=== PATIENT | female | born 1970 | race Caucasian/White ===

== ENCOUNTER 2016-06-18 11:30 | Emergency (ER) | payer MEDICARE, MEDICAID ==
[~2016-06-18] VITALS: Ht 157.5 cm; Wt 63.0 kg
[~2016-06-18 11:30] MED LIST: AMOX/K CLAV500 MG OR; ASPIRIN81 MG PO; ATENOLOL25 MG PO; BAYER ASPIRIN325 MG PO; BETA BLOCKER PO; BUTALBITAL/ACET1 CAP PO; DIVALPROEX PO; FIORICET PO; FLAGYL500 MG OR; FLUARIX QUADRIV1 INJ IM; LEVAQUIN500 MG OR; LEVAQUIN750 MG PO; PRAVASTATIN20 MG PO; PRILOSEC20 MG/CAP PO; PYRIDIUM200 MG PO; SIMVASTATIN10 MG PO; SIMVASTATIN40 MG PO; TAM75CAP PO; VALPROIC ACD250 M3 PO; VISCOUS LIDOCAINE PO; ZOFRAN4 MG OR; ZOFRAN4 MG/TAB PO; [UNRECOGNIZED DRUG - CODE] OR
[2016-06-18 12:32] LABS: HEMATOCRIT 38.9 % (37.0-47.0); IMMATURE GRANULOCYTES 0.1 % (0.0-1.0); MEAN CELL VOLUME 87.8 fL CALC (80.0-100.0); MEAN CORPUSCULAR HGB 29.3 pG CALC (26.0-32.0); MEAN CORPUSCULAR HGB CONC 33.4 g/L CALC (32.0-36.0); NEUT# 3.85 thou/uL (2.00-7.15); RED BLOOD COUNT 4.43 mill/uL (4.20-5.60); RED CELL DISTRI WIDTH 12.8 % (11.5-15.5); URINE BILIRUBIN - DIPSTICK NEGATIVE (NEGATIVE); URINE BLOOD DIPSTICK MODERATE (NEGATIVE); URINE COLOR YELLOW; URINE GLUCOSE - DIPSTICK NEGATIVE (NEGATIVE); URINE KETONE NEGATIVE (NEGATIVE); URINE LEUK ESTERASE NEGATIVE (NEGATIVE); URINE NITRITE - DIPSTICK NEGATIVE (Negative); URINE PH 5.5 (4.5-8.0); URINE PROTEIN - DIPSTICK NEGATIVE (NEG-TRACE); URINE UROBILINOGEN - DIPSTICK 0.2 E.U./dL (0.2)
[2016-06-18 12:33] LABS: URINE CLARITY SLIGHT CLOUDY; URINE EPITHELIAL CELLS FEW EPI/hpf (0-FEW)
[2016-06-18 12:45] LABS: ALKALINE PHOSPHATASE 60 u/l (38-126); AMYLASE 68 u/l (30-110); ANION GAP 16 (6-22 (CALC)); BILIRUBIN, TOTAL 0.3 mg/dL (0.0-1.4); BUN 8 mg/dL (7-17); BUN/CREATININE RATIO 11 (12-20 (CALC)); CALCIUM 10.1 mg/dL (8.4-10.2); CARBON DIOXIDE 25 mmol/l (22-30); CHLORIDE 102 mmol/l (95-108); CREATININE 0.7 mg/dL (0.5-1.0); GFR > 60 ML/MIN (>=60 (CALC)); GFR FOR AFR.AMER. > 60 ML/MIN (>=60 (CALC)); GLUCOSE 86 mg/dL (65-105); LIPASE 160 u/l (23-300); POTASSIUM 4.2 mmol/l (3.5-5.1); SGOT/AST 21 u/l (14-36); SGPT/ALT 26 u/l (9-52); SODIUM 139 mmol/l (137-146); TOTAL PROTEIN 7.8 g/dL (6.3-8.2)
[2016-06-18 12:57] LABS: MYOGLOBIN 53 ng/mL (0 - 62)
[2016-06-18] MEDS ORDERED: PERCOCET 5/325M1 TAB PO (15:49)
[2016-06-18] MEDS ORDERED: ZOFRAN ODT4 MG PO (15:49)
[2016-06-18] MEDS ORDERED: NEXIUM40 M1 PO (15:49)
[2016-06-18 16:01] VITALS: BP 128/61
== END 2016-06-18 16:17 | disposition home or self-care (01) ==
LOC: ED 11:30
PROVIDERS: Emergency Medicine
DX: R10.11 Right upper quadrant pain (principal); R11.0 Nausea; F17.210 Nicotine dependence, cigarettes, uncomplicated

== ENCOUNTER 2018-02-20 21:15 | Emergency (ER) | payer MEDICARE ==
[~2018-02-20] VITALS: Ht 157.5 cm; Wt 72.7 kg
[~2018-02-20 21:15] MED LIST changes: +NEXIUM40 M1 PO; +PERCOCET 5/325M1 TAB PO; +ZOFRAN ODT4 MG PO
[2018-02-20] MEDS ORDERED: INDERAL 40MG TA40 MG PO (21:31)
[2018-02-20 22:14] LABS: HEMATOCRIT 33.7 % (37.0-47.0); HEMOGLOBIN 11.1 g/dl (12.0-16.0); IMMATURE GRANULOCYTES 0.2 % (0.0-5.0); MEAN CELL VOLUME 88.9 fL CALC (80.0-100.0); MEAN CORPUSCULAR HGB 29.3 pG CALC (26.0-32.0); MEAN CORPUSCULAR HGB CONC 32.9 g/L CALC (32.0-36.0); NEUT# 4.68 thou/uL (2.00-7.15); RED BLOOD COUNT 3.79 mill/uL (4.20-5.60)
[2018-02-20 22:31] LABS: ALBUMIN 4.2 g/dL (3.2-5.0); ANION GAP 15 (6-22 (CALC)); BILIRUBIN, TOTAL 0.2 mg/dL (0.0-1.4); BUN 10 mg/dL (7-17); BUN/CREATININE RATIO 15 (12-20 (CALC)); CARBON DIOXIDE 27 mmol/l (22-30); CHLORIDE 102 mmol/l (95-108); CREATININE 0.7 mg/dL (0.5-1.0); GFR > 60 ML/MIN (>=60 (CALC)); GFR FOR AFR.AMER. > 60 ML/MIN (>=60 (CALC)); SGOT/AST 18 u/l (14-36); SODIUM 140 mmol/l (137-146); TOTAL PROTEIN 6.9 g/dL (6.3-8.2)
[2018-02-20 22:39] LABS: ALKALINE PHOSPHATASE 76 u/l (38-126)
[2018-02-21] MEDS ORDERED: MOTRIN800 MG PO (00:28)
[2018-02-21] MEDS ORDERED: DOXYCYCL HYC100 MG PO (00:28)
[2018-02-21 00:36] VITALS: BP 142/79
== END 2018-02-21 00:40 | disposition home or self-care (01) ==
LOC: ED 21:15
PROVIDERS: Family Medicine
DX: J18.9 Pneumonia, unspecified organism (principal); R05 Cough; R50.9 Fever, unspecified; F17.210 Nicotine dependence, cigarettes, uncomplicated; R51 Headache

== ENCOUNTER 2018-05-03 11:59 | Emergency (ER) | payer MEDICARE, MEDICAID ==
[~2018-05-03] VITALS: Ht 157.5 cm; Wt 72.7 kg
[~2018-05-03 11:59] MED LIST changes: +DOXYCYCL HYC100 MG PO; +INDERAL 40MG TA40 MG PO; +MOTRIN800 MG PO
[2018-05-03 14:15] VITALS: BP 129/84
== END 2018-05-03 14:15 | disposition home or self-care (01) ==
LOC: ED 11:59
DX: S93.601A Unspecified sprain of right foot, initial encounter (principal); I10 Essential (primary) hypertension; F17.210 Nicotine dependence, cigarettes, uncomplicated; X50.0XXA Overexertion from strenuous movement or load, initial encounter; Y92.009 Unspecified place in unspecified non-institutional (private) residence as the place of occurrence of the external cause

== ENCOUNTER 2019-03-02 19:16 | Emergency (ER) | payer MEDICARE, MEDICAID ==
[~2019-03-02] VITALS: Ht 157.5 cm; Wt 74.1 kg
[2019-03-02 21:50] VITALS: BP 145/82
== END 2019-03-02 21:55 | disposition home or self-care (01) ==
LOC: ED 19:16
DX: B34.9 Viral infection, unspecified (principal); I10 Essential (primary) hypertension; F17.200 Nicotine dependence, unspecified, uncomplicated

== ENCOUNTER 2019-08-21 15:51 | Emergency (ER) | payer MEDICARE, MEDICAID ==
[2019-08-21 16:13] LABS: HEMATOCRIT 36.4 % (37.0-47.0); IMMATURE GRANULOCYTES 0.3 % (0.0-5.0); MEAN CELL VOLUME 86.7 fL CALC (80.0-100.0); MEAN CORPUSCULAR HGB 28.6 pG CALC (26.0-32.0); NEUT# 4.4 thou/uL (2.00-7.15); RED BLOOD COUNT 4.2 mill/uL (4.20-5.60); RED CELL DISTRI WIDTH 13.4 % (11.5-15.5)
[2019-08-21 16:30] LABS: ALBUMIN 4.4 g/dL (3.2-5.0); ALKALINE PHOSPHATASE 76 u/l (38-126); AMYLASE 103 u/l (30-110); ANION GAP 14 (6-22 (CALC)); BUN 10 mg/dL (7-17); BUN/CREATININE RATIO 13 (12-20 (CALC)); CARBON DIOXIDE 23 mmol/l (22-30); CHLORIDE 105 mmol/l (95-108); CREATININE 0.7 mg/dL (0.5-1.0); GFR > 60 ML/MIN (>=60 (CALC)); GFR FOR AFR.AMER. > 60 ML/MIN (>=60 (CALC)); LIPASE 199 u/l (23-300); POTASSIUM 3.7 mmol/l (3.5-5.1); SODIUM 138 mmol/l (137-146); TOTAL PROTEIN 7.5 g/dL (6.3-8.2)
[2019-08-21 16:32] LABS: ACT PARTIAL THROMBO TIME 27.1 SECONDS (20.0-32.5); D-DIMER 0.21 mg/L (0.19-0.60); PROTHROMBIN TIME 10.1 SECONDS (9.0-12.5)
[2019-08-21 16:42] LABS: MYOGLOBIN 64 ng/mL (0 - 62)
[2019-08-21 16:44] LABS: BILIRUBIN, TOTAL 0.3 mg/dL (0.0-1.4); SGOT/AST 32 u/l (14-36)
[2019-08-21] MEDS ORDERED: TORADOL PO (17:46)
[2019-08-21] MEDS ORDERED: PEPCID40 MG PO (17:46)
[2019-08-21 18:16] VITALS: BP 118/69
== END 2019-08-21 18:13 | disposition home or self-care (01) ==
LOC: ED 15:51
PROVIDERS: Family Medicine
DX: M94.0 Chondrocostal junction syndrome [Tietze] (principal); K20.9 Esophagitis, unspecified; I10 Essential (primary) hypertension; F17.200 Nicotine dependence, unspecified, uncomplicated

== ENCOUNTER 2023-03-17 12:38 | Emergency (ER) | payer MEDICARE, MEDICAID ==
[~2023-03-17] VITALS: Ht 157.5 cm; Wt 78.0 kg
[~2023-03-17 12:38] MED LIST changes: +AMOX/K CLAV875 M1 PO; +LORTAB 5/3255 MG PO; +ONDANSETRON4 MG PO; +PEPCID40 MG PO; +TORADOL PO
[2023-03-17 14:14] LABS: BASO% 0.3 % (0-3); EOS% 0.6 % (0-8); HEMATOCRIT 36.2 % (37.0-47.0); HEMOGLOBIN 11.9 g/dl (12.0-16.0); IMMATURE GRANULOCYTES 0.1 % (0.0-5.0); LYMPH% 27.7 % (15-41); MEAN CELL VOLUME 86.4 fL CALC (80.0-100.0); MEAN CORPUSCULAR HGB 28.4 pG CALC (26.0-32.0); MEAN CORPUSCULAR HGB CONC 32.9 g/dL CAL (32.0-36.0); MONO% 7.1 % (2-13); NEUT# 6.66 thou/uL (2.00-7.15); NEUT% 64.2 % (42-76); RED BLOOD COUNT 4.19 mill/uL (4.20-5.60); RED CELL DISTRI WIDTH 12.8 % (11.5-15.5)
[2023-03-17 14:27] LABS: ALBUMIN 4.6 g/dL (3.2-5.0); ALKALINE PHOSPHATASE 80 u/l (38-126); ANION GAP 15 (6-22 (CALC)); BUN 13 mg/dL (7-17); BUN/CREATININE RATIO 16 (12-20 (CALC)); CARBON DIOXIDE 26 mmol/l (22-30); CHLORIDE 103 mmol/l (95-108); CREATININE 0.8 mg/dL (0.5-1.0); GFR FOR AFR.AMER. > 60 ML/MIN (>=60 (CALC)); GFR OTHER RACES > 60 ML/MIN (>=60 (CALC)); POTASSIUM 3.6 mmol/l (3.5-5.1); SGOT/AST 25 u/l (14-36); SODIUM 139 mmol/l (137-146)
[2023-03-17 14:29] LABS: BILIRUBIN, TOTAL 0.5 mg/dL (0.02-1.3)
[2023-03-17 15:56] LABS: URINE BILIRUBIN - DIPSTICK Negative (NEGATIVE); URINE BLOOD DIPSTICK Moderate (NEGATIVE); URINE GLUCOSE - DIPSTICK Negative (NEGATIVE); URINE KETONE Negative (NEGATIVE); URINE LEUK ESTERASE Negative (NEGATIVE); URINE NITRITE - DIPSTICK Negative (Negative); URINE PROTEIN - DIPSTICK Negative (NEG-TRACE)
[2023-03-17] MEDS ORDERED: CIPROFLOXACN500 MG PO (15:56)
[2023-03-17] MEDS ORDERED: METRONIDAZOLE500 MG PO (15:56)
[2023-03-17 15:57] LABS: URINE COLOR Yellow; URINE SQUAMOUS EPITHELIAL CELL FEW EPI/hpf (0-FEW); URINE WBC 0-2 WBC/hpf (0-5)
[2023-03-17 18:37] VITALS: BP 109/74
== END 2023-03-17 17:00 | disposition home or self-care (01) ==
LOC: ED 12:38
PROVIDERS: Nurse Practitioner Family
DX: K57.32 Diverticulitis of large intestine without perforation or abscess without bleeding (principal); I10 Essential (primary) hypertension

== ENCOUNTER 2024-05-20 13:09 | Emergency (ER) | payer MEDICARE ==
[2024-05-20] VITALS (7 sets, daily range): BP systolic 109–137; BP diastolic 59–85
[~2024-05-20] VITALS: Ht 157.5 cm; Wt 78.0 kg
[~2024-05-20 13:09] MED LIST changes: +CIPROFLOXACN500 MG PO; +METRONIDAZOLE500 MG PO
[2024-05-20] MEDS ORDERED: MORPHINE SULFATE 4 MG/ML VIAL IV ONE ×2 (13:30→15:20)
[2024-05-20] MEDS ORDERED: ONDANSETRON HCl 4 MG/2 ML SDV IV ONE (13:30)
[2024-05-20 13:37] LABS: BASO% 0.5 % (0-3); HEMATOCRIT 38.3 % (37.0-47.0); HEMOGLOBIN 12.5 g/dl (12.0-16.0); IMMATURE GRANULOCYTES 0.1 % (0.0-5.0); LYMPH% 27.7 % (15-41); MEAN CELL VOLUME 87.4 fL CALC (80.0-100.0); MEAN CORPUSCULAR HGB 28.5 pG CALC (26.0-32.0); MEAN CORPUSCULAR HGB CONC 32.6 g/dL CAL (32.0-36.0); MONO% 4.9 % (2-13); NEUT# 5.65 thou/uL (2.00-7.15); NEUT% 65.8 % (42-76); RED BLOOD COUNT 4.38 mill/uL (4.20-5.60); RED CELL DISTRI WIDTH 12.8 % (11.5-15.5)
[2024-05-20 13:53] LABS: ALBUMIN 5.1 g/dL (3.2-5.0); ALKALINE PHOSPHATASE 71 u/l (38-126); BILIRUBIN, TOTAL 0.6 mg/dL (0.02-1.3); BUN 13 mg/dL (7-17); BUN/CREATININE RATIO 14 (12-20 (CALC)); CARBON DIOXIDE 25 mmol/l (22-30); CHLORIDE 102 mmol/l (95-108); ESTIMATED GFR 67 ML/MIN (>=90 (CALC)); LIPASE 93 u/l (23-300); SGOT/AST 35 u/l (14-36); SODIUM 138 mmol/l (137-146)
[2024-05-20 13:57] LABS: ANION GAP 15 (6-22 (CALC)); POTASSIUM 3.9 mmol/l (3.5-5.1)
[2024-05-20 15:48] LABS: URINE BILIRUBIN - DIPSTICK Negative (NEGATIVE); URINE BLOOD DIPSTICK Trace-lysed (NEGATIVE); URINE GLUCOSE - DIPSTICK Negative (NEGATIVE); URINE KETONE Negative (NEGATIVE); URINE LEUK ESTERASE Negative (NEGATIVE); URINE NITRITE - DIPSTICK Negative (Negative); URINE PROTEIN - DIPSTICK Negative (NEG-TRACE); URINE SPECIFIC GRAVITY <=1.005; URINE UROBILINOGEN - DIPSTICK 0.2 E.U./dL (0.2)
[2024-05-20 15:50] LABS: URINE COLOR Yellow
[2024-05-20] MEDS ORDERED: CEPHALEXIN500 M1 PO (16:01)
== END 2024-05-20 16:53 | disposition home or self-care (01) ==
LOC: ED 13:09
PROVIDERS: Family Medicine
DX: R10.32 Left lower quadrant pain (principal); R31.9 Hematuria, unspecified; I10 Essential (primary) hypertension; G31.80 Leukodystrophy, unspecified
CPT/HCPCS: J2405; Q9967